=== PATIENT | male | born 1995 | race Caucasian/White ===

== ENCOUNTER 2021-10-21 11:11 | Emergency (ER) | payer BC, SELFPAY ==
[2021-10-21] MEDS ORDERED: Ondansetron PF 4 MG/2 ML Vial ONE (11:35)
[2021-10-21] MEDS ORDERED: Morphine 4 MG/ML VIAL ONE ×2 (11:35→12:20)
[2021-10-21] MEDS ORDERED: Ketorolac Tromethamine 30 MG/ML VIAL ONE (11:35)
[2021-10-21 11:49] LABS: #Monocytes 0.6 10x3/uL (0.0-1.1); #Neutrophils 8.2 10x3/uL (1.5-8.4); %Basophils 0.3 % (0.0-2.0); %Eosinophils 0.4 % (0.0-6.0); %Monocytes 5.5 % (0.0-10.0); %Neutrophils 78.6 % (40.0-75.0); Hemoglobin 14.8 g/dL (13.5-17.5); Mean Corpuscular HGB CONC 34.7 g/dL (32.0-36.0); Mean Corpuscular Hemoglobin 29.6 pg (27.0-33.0); Mean Corpuscular Volume 85.4 fl (81.2-95.1); Mean Platelet Volume 9.5 fl (7.4-10.4); Platelet Count 317 10x3/uL (150-450); RBC Distribution Width 12.1 % (11.5-14.5); White Blood Cell (WBC) Count 10.4 10x3/uL (3.5-10.5)
[2021-10-21 12:09] LABS: ALT (SGPT) 11 U/L (8-55); AST (SGOT) 13 U/L (5-34); Albumin 5.2 g/dL (3.5-5.0); Alkaline Phosphatase 51 U/L (40-110); Anion Gap 17 mmol/L (10-20); BUN (Urea Nitrogen) 12 mg/dL (8.9-20.6); Bilirubin, Total 0.5 mg/dL (0.2-1.2); Calc. Creatinine Clearance 0 mL/min (70-130); Carbon Dioxide 23 mmol/L (22-29); Chloride 103 mmol/L (98-107); Globulin 2.7 g/dL (2.4-3.5); Glucose 151 mg/dL (70-105); Lipase 125 U/L (8-78); Potassium 3.9 mmol/L (3.5-5.1); Protein, Total 7.9 g/dL (6.0-8.3); Sodium 139 mmol/L (136-145)
[2021-10-21] MEDS ORDERED: Promethazine HCl 25 MG/ML VIAL ONE (12:20)
[2021-10-21] MEDS ORDERED: Tamsulosin HCl 0.4 MG CAP ONE (12:48)
[2021-10-21 13:49] LABS: Bilirubin Neg (Negative); Blood, Urine 250 (Negative); Clarity Cloudy (Clear); Glucose, Urine (Dipstick) 100 mg/dL (Negative); Ketone, Urine 50 mg/dL (Negative); Leukocyte 25 (Negative); Nitrite Negative (Negative); Protein, Urine (Dipstick) 30 mg/dl (Neg-Trace); Urobilinogen Normal mg/dL (Less than 2)
[2021-10-21 14:08] LABS: RBC/HPF Greater than 50 HPF (0-3); Squamous Epithelial 0-3 HPF (0-3)
[2021-10-21 14:10] LABS: Bacteria/HPF 3+ HPF (None Seen); Calcium Oxalate Crystals 1+ HPF (None Seen); Mucous/LPF 3+ LPF (<2+)
== END 2021-10-21 14:30 | disposition home or self-care (01) ==
LOC: CSHERS 11:11
DX: N13.6 Pyonephrosis (principal); N39.0 Urinary tract infection, site not specified
CPT/HCPCS: 74176; 80053; 81003; 81015; 83690; 85025; 87086; 96361; 96365; 96375; 96376; J1885; J2270; J2405; J2550

== ENCOUNTER 2022-07-01 01:24 | Emergency (ER) | payer SELFPAY ==
[2022-07-01] MEDS ORDERED: Morphine 4 MG/ML VIAL ONE (01:40)
[2022-07-01] MEDS ORDERED: Ondansetron PF 4 MG/2 ML Vial ONE (01:41)
[2022-07-01] MEDS ORDERED: Ketorolac Tromethamine 30 MG/ML VIAL ONE (01:53)
[2022-07-01 02:04] LABS: #Basophils 0.1 10x3/uL (0.0-0.2); #Eosinphils 0.1 10x3/uL (0.0-0.5); #Monocytes 0.6 10x3/uL (0.0-1.1); #Neutrophils 10.5 10x3/uL (1.5-8.4); %Basophils 0.4 % (0.0-2.0); %Eosinophils 0.6 % (0.0-6.0); %Lymphocytes 15.7 % (18.0-47.0); %Monocytes 4.5 % (0.0-10.0); %Neutrophils 78.5 % (40.0-75.0); Hemoglobin 14.5 g/dL (13.5-17.5); Mean Corpuscular HGB CONC 34.2 g/dL (32.0-36.0); Mean Corpuscular Hemoglobin 29.7 pg (27.0-33.0); Mean Corpuscular Volume 86.7 fl (81.2-95.1); Platelet Count 335 10x3/uL (150-450); RBC Distribution Width 11.9 % (11.5-14.5); Red Blood Cell (RBC) Count 4.89 10x6/uL (4.32-5.72); White Blood Cell (WBC) Count 13.4 10x3/uL (3.5-10.5)
[2022-07-01 02:16] LABS: Anion Gap 17 mmol/L (10-20); BUN (Urea Nitrogen) 13 mg/dL (8.9-20.6); Calc. Creatinine Clearance 0 mL/min (70-130); Calcium 9.8 mg/dL (7.8-10.44); Carbon Dioxide 23 mmol/L (22-29); Chloride 101 mmol/L (98-107); Estimated GFR 86; Glucose 139 mg/dL (70-105); Potassium 3.2 mmol/L (3.5-5.1); Sodium 138 mmol/L (136-145)
[2022-07-01] MEDS ORDERED: Tamsulosin HCl 0.4 MG CAP ONE (03:22)
[2022-07-01 03:49] LABS: Bilirubin Neg (Negative); Blood, Urine 250 (Negative); Clarity Clear (Clear); Glucose, Urine (Dipstick) 50 mg/dL (Negative); Ketone, Urine 50 mg/dL (Negative); Leukocyte Negative (Negative); Nitrite Negative (Negative); Protein, Urine (Dipstick) 30 mg/dl (Neg-Trace); Specific Gravity, Urine 1.025 (1.005-1.030); Urobilinogen Normal mg/dL (Less than 2)
[2022-07-01 04:15] LABS: Bacteria/HPF None Seen HPF (None Seen); Squamous Epithelial 0-3 HPF (0-3); WBC/HPF 0-3 HPF (0-3)
[2022-07-01 04:16] LABS: Calcium Oxalate Crystals 1+ HPF (None Seen)
== END 2022-07-01 04:40 | disposition home or self-care (01) ==
LOC: CSHERS 01:24
DX: N13.2 Hydronephrosis with renal and ureteral calculous obstruction (principal)
CPT/HCPCS: 74176; 80048; 81003; 81015; 85025; 96374; 96375; J1885; J2270; J2405